=== PATIENT | female | born 1975 | race Caucasian/White ===

== ENCOUNTER 2017-02-24 08:29 | Day surgery (SDC) | payer OTHER ==
[~2017-02-24 08:29] MED LIST: RINGERS SOLUTION,LACTATED 1,000 ML IV PRN
--- OUTSIDE RECORDS SUMMARY | 2017-02-24 08:33 | XMS REPORT | Continuity of Care Document ---
:1975 Author Organization [facility] ([facility]) Address [address] [place] [address] Phone [phone] Care Team Providers Name Role Phone Ching Ruelas Primary Care Provider [phone] Source Comments This disclosure is being made pursuant to the Care Everywhere program, applicable federal and state laws, and may not contain all informaitonavailable regarding this patient.[facility] ([facility]) Active Allergies and Adverse Reactions No Known Allergies Current Medications Prescription Sig. Disp. Refills Start Date End Date Status ZENCHENT (28) 0.4-35 daily. 08/20/2016 Active mg-mcg tab tablet amoxicillin 500 mg capsule 2 times daily. URI 08/19/2016 Active levothyroxine 50 mcg 50 mcg daily. 6 08/13/2016 Active tablet simvastatin 20 mg tablet 20 mg every 6 08/13/2016 Active evening. Active Problems Problem Noted Date Routine gynecological examination 04/27/2006 Screening for diabetes mellitus 04/27/2006 Screening for lipoid disorders 04/27/2006 Other and unspecified ovarian cyst 04/27/2006 Social History Tobacco Use Types Packs/Day Years Used Date Never Smoker Smokeless Tobacco: Never Used Alcohol Use Drinks/Week oz/Week Comments No Last Filed Vital Signs Vital Sign Reading Time Taken Blood Pressure 157/76 08/27/2016 10:24 AM CDT Pulse 76 08/27/2016 10:24 AM CDT Temperature 35.9 C (96.62 F) 04/27/2006 8:25 AM CDT Respiratory Rate - - Height 1.64 m (5' 4.57") 08/22/2016 10:11 AM CDT Weight 84.9 kg (187 lb 2.7 oz) 08/22/2016 10:11 AM CDT Body Mass Index 31.57 08/22/2016 10:11 AM CDT Oxygen Saturation - - Plan of Care Health Maintenance Due Date Last Done Comments Hepatitis B Vaccine (1 of 3 1974 - Primary Series) Tdap Vaccine 1985 MMR Vaccine 1992 Td Vaccine 1992 Pneumococcal Vaccine (1 of 3 1993 - PCV13) Cervical Cancer Screening 04/27/2009 04/27/2006, Additional history exists 04/06/1997, 12/06/1996 Lipid Disorder Screening 04/27/2011 04/27/2006 Mammogram 2014 Influenza Vaccine: Seasonal 06/16/2016 (#1) Results from Last 3 Months Not on file
[2017-02-24 08:53] LABS: Hematocrit 40.1 % (37.0-47.0); Hemoglobin 13.2 gm/dL (12.5-16.0); Mean Cell Volume 87.4 fl (78-100); Mean Corpuscular Hemoglobin 28.8 pg (27-31); Mean Corpuscular Hgb Conc 32.9 g/dl (32-36); Mean Platelet Volume 10.4 fl (6.0-9.5); Neutrophil % 62.2 % (42-75.0); Platelet Count 226 K/mm3 (150-450); Red Blood Count 4.59 M/mm3 (4.2-5.4); Red Cell Distribution Width 12.9 % (11.5-14.0); White Blood Count 6.4 K/mm3 (4.0-10.5)
[2017-02-24] MEDS ORDERED: RINGERS SOLUTION,LACTATED 1,000 ML IV ONE (09:06)
[2017-02-24] MEDS ORDERED: oxyCODONE HCL/ACETAMINOPHEN 1 TAB TABLET PO PRN (09:51)
[2017-02-24] MEDS ORDERED: IBUPROFEN 600 MG TABLET PO PRN (09:51)
--- NOTE | 2017-02-24 10:25 | OR ---
Operative Report - Dictated Report Narrative: Operative Report 02/24/17 Hysteroscopy Dilatation and Curettage Preoperative Diagnosis: Menorrhagia, Uterine Fibroids Postoperative Diagnosis: Menorrhagia, Uterine Fibroids, Cervical Stenosis Procedure: Hysteroscopy Dilatation and Curettage Surgeon: Mayra Hightower M.D. Anesthesia: Gomez Ariza CRNA, IV sedation Findings: Uterine sound was 12 cm. There was cervical stenosis. The uterus was severely anti-verted which made it difficult to sample the lining of the uterus. She is not a good candidate for NovaSure endometrial ablation as the device would not make the curve to get to the uterine fundus even with traction on the cervix as well as the size of the uterus. She did not have good descent of the cervix and therefore with the size of her uterus would not be a good candidate for vaginal hysterectomy. Fluids: 250 ml EBL: Minimal Drains: None Complications: None Condition: Stable Pathology: Endometrial curettings Procedure: The patient was taken to the operating room with IV fluids running. She was placed in the dorsal lithotomy position after anesthesia was induced. A bivalve speculum was placed in the vagina. The anterior lip of the cervix was grasped with a single-tooth tenaculum. Uterine sound was not easily passed. The 2 mm hysteroscope was used to navigate through the cervical canal to the endometrial cavity. The uterus was extremely anteverted. The uterine sound into the endometrial cavity with ease. Uterine sound was 12 cm. The cervix was dilated with Max dilators. The hysteroscope was introduced into the endometrial cavity. The cavity was distended with normal saline. [place] were visualized bilaterally. There is no evidence of submucosal fibroid or endometrial polyp. The hysteroscope was removed. The cavity was sharply curetted without difficulty. The hysteroscope was once again introduced into the cavity. The cavity was completely curetted. The hysteroscope was removed. The single-tooth tenaculum was removed. Sites were hemostatic. The speculum was removed from the vagina. Sponge counts were correct 2. The patient tolerated the procedure well.
[2017-02-24 11:58] VITALS: BP 156/92
== END 2017-02-24 08:30 | disposition home or self-care (01) ==
LOC: AMB 08:29
PROVIDERS: ATTEND Obstetrics & Gynecology
PROC: 0UDB8ZX Extraction of Endometrium, Via Natural or Artificial Opening Endoscopic, Diagnostic (ICD-10-PCS; principal; 2017-02-24 09:30)
DX: D25.9 Leiomyoma of uterus, unspecified (principal); N92.0 Excessive and frequent menstruation with regular cycle; N88.2 Stricture and stenosis of cervix uteri; E78.5 Hyperlipidemia, unspecified; E03.9 Hypothyroidism, unspecified; Z68.34 Body mass index [BMI] 34.0-34.9, adult

== ENCOUNTER 2017-04-30 07:06 | Day surgery (SDC) | payer SELFPAY ==
[~2017-04-30 07:06] MED LIST changes: +ceFAZolin SODIUM 2 GM in DEXTROSE 5 % IN WATER 50 ML IV PRN
--- OUTSIDE RECORDS SUMMARY | 2017-04-30 07:10 | XMS REPORT | Continuity of Care Document ---
:1975 Author Organization [facility] ([facility]) Address [address] [place] [address] Phone [phone] Care Team Providers Name Role Phone Ching Ruelas Primary Care Provider [phone] Source Comments This disclosure is being made pursuant to the Care Everywhere program, applicable federal and state laws, and may not contain all informaitonavailable regarding this patient.[facility] ([facility]) Active Allergies and Adverse Reactions No Known [...]
[2017-04-30 07:36] LABS: Hematocrit 41.3 % (37.0-47.0); Mean Cell Volume 83.3 fl (78-100); Mean Corpuscular Hemoglobin 28.2 pg (27-31); Mean Corpuscular Hgb Conc 33.9 g/dl (32-36); Mean Platelet Volume 10.1 fl (6.0-9.5); Neutrophil # 3.2 K/mm3 (1.3-6.0); Neutrophil % 56.8 % (42-75.0); Platelet Count 221 K/mm3 (150-450); Red Blood Count 4.96 M/mm3 (4.2-5.4); Red Cell Distribution Width 12.6 % (11.5-14.0); White Blood Count 5.6 K/mm3 (4.0-10.5)
[2017-04-30] MEDS ORDERED: RINGERS SOLUTION,LACTATED 1,000 ML IV ONE ×3 (07:40→11:26)
[2017-04-30 07:49] LABS: Albumin * 3.6 gm/dl (3.4-5.0); Anion Gap 14.8 mmol/L (6.8-13.8); BUN/Creatinine Ratio 20.3 (9.0-21.6); Bilirubin, Total 0.6 mg/dL (0.0-1.1); Ca. Corrected For Albumin 8.8 mg/dL (8.4-10.2); Calcium * 8.8 mg/dL (7.9-10.9); Carbon Dioxide 23.3 mmol/L (24-32.6); Potassium 4.1 mmol/L (3.4-4.6); Total Protein 7.2 gm/dL (6.2-8.2)
[2017-04-30] MEDS ORDERED: BUPIVACAINE HCL 50 ML VIAL IJ ONE (13:44)
[2017-04-30] MEDS ORDERED: RINGERS SOLUTION,LACTATED 1,000 ML IV PRN (14:02)
--- NOTE | 2017-04-30 14:02 | OR ---
Operative Report - Dictated Report Narrative: DATE OF PROCEDURE: 04/30/2017 PROCEDURE: 1. Total laparoscopic hysterectomy, bilateral salpingectomy 2. Diagnostic cystoscopy ANESTHESIA: General, endotracheal intubation. PREOPERATIVE DIAGNOSES: 1. Menorrhagia, failed hormonal therapy 2. Dysmenorrhea 3. Chronic pelvic pain 4. Multiple uterine fibroids 5. Enlarged uterus POSTOPERATIVE DIAGNOSES: 1. Menorrhagia, failed hormonal therapy 2. Dysmenorrhea 3. Chronic pelvic pain 4. Multiple uterine fibroids 5. Enlarged uterus SURGEON: Randy Smiley M.D. WIRE WORKER: Erika Brody Elizabeth FINDINGS: 1. Enlarged uterus with fibroids, abount 18 x 10 cm in size, sounded to 12 cm. 2. Both ovaries and fallopian tubes appeared normal. There were evidences of bilateral tubal ligations and surgical clips near the tubal sites. 3. On cystoscopy, the bladder appeared intact and bilateral ureteral jets were seen. SPECIMENS: Uterus, cervix, and both tubes DRAINS: None. URINE OUTPUT: 500 ml BLOOD LOSS: 100 ml INTRAOPARATIVE IV FLUIDS: 2400 ml COMPLICATIONS: None. DESCRIPTION OF PROCEDURE: The patient consented to the operation and was taken to the operating room. She was placed on the operating table supine. SCDs were placed on her lower extremities. General anesthesia was induced. Two grams of ancef was given by IV prior to anesthesia induction. She was repositioned in the dorsal lithotomy position. Her right arm was tucked at her side under the drape. Exam under anesthesia revealed an enlarged uterus with minimal descent and no adnexal mass. The abdomen was prepped with Chloraprep and the vagina was prepped with Betadine. She was draped in the usual sterile fashion. A time -out procedure was conducted to confirm the correct patient for the correct procedure. After time-out, a Solano catheter was placed into the bladder. A bivalve speculum was placed into the vagina. The vagina and the cervix were prepped with Betadine one more time. The anterior cervix was grasped with a single-tooth tenaculum. The uterus was sounded to 12 cm. A large VCare uterine manipulator was inserted into the uterine cavity. The balloon was inflated with 5 cc of air. The single-tooth tenaculum was removed. [place] speculum was removed. The upper VCare cup was advanced into the vagina to hug the cervix. The lower VCare cup was advanced into the vagina to align with the upper VCare cup and to provide pneumoperitoneum for the procedure. The lower VCare cup was fastened to the uterine manipulator. The surgeon then changed gloves and attention was paid to the abdomen. A small vertical incision was made at the upper edge of the umbilicus. A Veress needle was inserted into the abdominal cavity. Intraabdominal placement was confirmed with a saline drop test and with low entry pressure of 2 mmHg. The abdomen was insufflated with CO2 gas to an intraabdominal pressure of 15 mmHg. The Veress needle was removed. A 5 mm trocar with the laparoscope was inserted through the umbilicus incision into the abdomen. Intraabdominal placement was confirmed with the laparoscope. Survey of the entry site revealed no trauma to the underlying structures. Survey of the upper abdomen was unremarkable. The patient was then placed in Trendelenburg position. A left and a right lower quadrant trocars (5 mm) were placed under the direct visualization of the laparoscope. A third trocar (5 mm) was placed suprapubically in the midline. Survey of the pelvis revealed findings noted above. Attention was now turned to the left side. The left fallopian tubal was elevated. The mesosalpinx was divided with the Thunderbeat. The division was carried to the cornual region. The uteroovarian ligament was divided with the Thunderbeat and the division was carried on the broad ligament to the round ligament towards the lower uterine segment. The course of the left ureter was not identified, but believed to be away from the surgical field. The broad ligament incision was into the anterior leaf and the posterior leaf. Anterior leaf of the broad ligament was dissected towards the bladder uterine reflection. The posterior leaf of the broad ligament was dissected towards the uterosacral ligament. The left uterine vessel was isolated and divided with the Thunderbeat. There was bleeding from the uterine vessel and this was secured with the Thunderbeat. The cardinal ligament complex was divided with the Thunderbeat to the level of vaginal cervical junction. Attention was now turned to the right side. The mesosalpinx was divided with the Thunderbeat. The uteroovarian ligament was divided with the Thunderbeat and the division was carried on the broad ligament to the round ligament towards the lower uterine segment. The course of the right ureter was not identified due to excess adipose tissue. The broad ligament incision was into the anterior leaf and the posterior leaf. The anterior leaf of the broad ligament was dissected towards the bladder uterine reflection. The posterior leaf of the broad ligament was dissected towards the uterosacral ligament. The right uterine vessel was isolated, and divided with the Thunderbeat. There was some bleeding here and was controlled with the Thunderbeat. The cardinal ligament complex was divided with the Thunderbeat to the level of vaginal cervical junction. Now the vaginal fornix was able to seen well through the VCare cup. The Thunderbeat was used to make an anterior colpotomy over the VCare cup groove. Entry into the vagina was without complications. A circumferential incision was made along the vaginal cervical junction using the Thunderbeat. Bilateral uterosacral ligament was divided. The cervix was completely divided from the vagina. The surgeon moved to the vaginal area to retrieve the specimen. The VCare uterine manipulator was removed. The cervix with the uterus and both tubes were removed through the vagina in one piece. The vagina was packed with 2 moist laps to keep the pneumoperitoneum. The surgeon then changed gloves and attention was paid back to the abdomen. The pelvis was thoroughly irrigated with saline. The vaginal opening was closed transversely with interrupted 0 Vicryl Endoknot suture using intracorporeal suturing technique and extracorporeal knot tying. The uterosacral ligament on each side was sutured to the vaginal cuff corner for cuff support. The pelvis was irrigated with saline. Extra fluid was suctioned out from the abdomen and pelvis. There was hemostasis in all vessel pedicles. The patient was taken out of Trendelenburg Three lower abdominal trocars were removed. The abdomen was deflated. The trocar at the umbilicus was removed with the laparoscope. The skin incision was closed with 4-0 Monocryl suture and was covered with Steri- Strips. 2-3 ml of 0.25% Marcaine was infiltrated at the laparoscopic incision for post op pain management. Next, a diagnostic cystoscopy was performed. Vaginal packing was removed and the Solano catheter was removed. A 70-degree cystoscope was introduced through the urethra into the bladder. Exam of the bladder revealed the bladder was intact. There were urine jets coming out from the left as well as the right ureteral orifice, confirming the integrity of ureters. The cystoscope was removed. The Solano catheter was not replaced. The patient tolerated the procedure well. All counts were correct and the patient was taken to the recovery room in stable condition. Randy Smiley MD
[2017-04-30] MEDS ORDERED: HYDROcodone/ACETAMINOPHEN 1 EACH TABLET PO PRN (14:03)
[2017-04-30] MEDS ORDERED: ONDANSETRON HCL/PF 2 MG/ML VIAL IV PRN (14:04)
[2017-04-30] MEDS ORDERED: IBUPROFEN 800 MG TABLET PO ONE ×2 (15:00→17:08)
[2017-04-30] MEDS ORDERED: HYDROcodone/ACETAMINOPHEN 1 EACH TABLET PO ONE (15:37)
[2017-04-30] MEDS ORDERED: IBUPROFEN 800 MG TABLET ONE (17:00)
[2017-04-30 17:35] VITALS: BP 171/84
[2017-04-30] MEDS ORDERED: RINGERS SOLUTION,LACTATED 100 ML IV ONE (17:37)
[2017-04-30] MEDS ORDERED: ONDANSETRON 8 MG TAB.RAPDIS PO ONE (17:55)
[2017-04-30] MEDS ORDERED: ONDANSETRON 8 MG TAB.RAPDIS ONE (18:02)
[2017-04-30] MEDS ORDERED: ONDANSETRON 8 MG TAB.RAPDIS SL ONE (18:06)
== END 2017-04-30 07:07 | disposition home or self-care (01) ==
LOC: AMB 07:06
PROVIDERS: ATTEND Obstetrics & Gynecology
PROC: 0UT7FZZ Resection of Bilateral Fallopian Tubes, Via Natural or Artificial Opening With Percutaneous Endoscopic Assistance (ICD-10-PCS; 2017-04-30)
PROC: 0UT9FZZ Resection of Uterus, Via Natural or Artificial Opening With Percutaneous Endoscopic Assistance (ICD-10-PCS; principal; 2017-04-30 08:30)
PROC: 0UTC7ZZ Resection of Cervix, Via Natural or Artificial Opening (ICD-10-PCS; 2017-04-30 08:30)
DX: D25.1 Intramural leiomyoma of uterus (principal); D25.2 Subserosal leiomyoma of uterus; N83.8 Other noninflammatory disorders of ovary, fallopian tube and broad ligament; N70.91 Salpingitis, unspecified; N85.2 Hypertrophy of uterus; E78.5 Hyperlipidemia, unspecified; E03.9 Hypothyroidism, unspecified; Z68.36 Body mass index [BMI] 36.0-36.9, adult